=== PATIENT | male | born 1940 | race Caucasian/White ===

== ENCOUNTER 2017-05-18 14:13 | Emergency (ER) | payer MEDICARE ==
[~2017-05-18] VITALS: Ht 182.8 cm; Wt 83.9 kg
[2017-05-18] VITALS (10 sets, daily range): BP systolic 138–175; BP diastolic 67–104
[2017-05-18 14:34] LABS: BASO # 0.1 10*3/uL (0.0-0.1); BASO % 0.5 % (0.0-1.0); EOS # 0.1 10*3/uL (0.0-0.4); EOS % 0.9 % (1.0-4.0); HEMOGLOBIN 13.7 g/dl (14.0-18.0); LYMPH # 1.6 10*3/uL (1.3-4.4); LYMPH % 15.5 % (27.0-41.0); MEAN CELL VOLUME 93.3 fl (80.0-94.0); MEAN CORPUSCULAR HGB 30.4 pg (27.0-31.0); MEAN CORPUSCULAR HGB CONC 32.6 g/dl (33.0-37.0); MEAN PLATELET VOLUME 9.9 fl (9.6-12.3); MONO # 0.6 10*3/uL (0.1-1.0); MONO % 5.7 % (3.0-9.0); NEUT # 8.1 10*3/uL (2.3-7.9); NEUT % 77.1 % (47.0-73.0); PLATELET COUNT AUTOMATED 236 10*3/uL (130-400); RED CELL DISTRI WIDTH 17.9 % (0-14.5); WHITE BLOOD COUNT 10.5 10*3/uL (4.8-10.8)
[2017-05-18] MEDS ORDERED: COREG25 MG PO (14:47)
[2017-05-18] MEDS ORDERED: CENTRUM SILVER1 EAC2 PO (14:48)
[2017-05-18] MEDS ORDERED: CLOPIDOGREL75 MG PO (14:48)
[2017-05-18] MEDS ORDERED: INSPRA25 MG PO (14:48)
[2017-05-18] MEDS ORDERED: LASIX40 MG PO (14:49)
[2017-05-18] MEDS ORDERED: GLUCOTROL XL5 MG PO (14:50)
[2017-05-18] MEDS ORDERED: PREDNISONE5 MG PO (14:50)
[2017-05-18] MEDS ORDERED: MULTIVITAMINS1 EAC5 PO (14:51)
[2017-05-18] MEDS ORDERED: IRON325 M1 PO (14:51)
[2017-05-18] MEDS ORDERED: COZAAR50 M1 PO (14:52)
[2017-05-18] MEDS ORDERED: IMDUR SA60 M1 PO (14:52)
[2017-05-18] MEDS ORDERED: ULTRAM50 MG PO (14:53)
[2017-05-18] MEDS ORDERED: PACERONE100 MG PO (14:53)
[2017-05-18 14:54] LABS: ACT PARTIAL THROMBO TIME 25.1 SECONDS (20.8-31.5)
[2017-05-18] MEDS ORDERED: ZOLPIDEM5 MG PO (14:54)
[2017-05-18 14:57] LABS: ALBUMIN 4.1 gm/dl (3.1-4.5); ALKALINE PHOSPHATASE 39 U/L (45-117); BUN 22 mg/dl (7-24); CHLORIDE 103 mmol/L (98-107); CREATININE 1.33 mg/dL (0.70-1.30); POTASSIUM 4.5 mmol/L (3.5-5.1); SGOT/AST 20 IU/L (3-35); SGPT/ALT 24 U/L (12-78); SODIUM 139 mmol/L (136-145); TOTAL PROTEIN 7.5 gm/dL (6.4-8.2)
[2017-05-18 15:01] LABS: TROPONIN I 0.131 ng/ml (<0.045)
[2017-05-18 20:34] LABS: PHOSPHOROUS 3.3 mg/dL (2.5-4.9)
[2017-05-18 20:37] LABS: TROPONIN I 12.3 ng/ml (<0.045)
[2017-05-18 20:47] LABS: THYROID STIM HORMONE (HS) 1.32 uIU/ml (0.358-4.75)
[2017-05-18 21:11] LABS: VITAMIN D, 25-HYDROXY 24.9 ng/mL (30-100)
== END 2017-05-18 21:00 | disposition short-term general hospital (02) ==
LOC: ED 14:13 → EDHOLD 17:01 → 4E 17:22 → EDHOLD 17:22 → ED 21:00
PROVIDERS: Emergency Medicine; Internal Medicine Hospice and Palliative Medicine
DX: I21.4 Non-ST elevation (NSTEMI) myocardial infarction (principal); R07.89 Other chest pain; Z87.891 Personal history of nicotine dependence; Z98.890 Other specified postprocedural states; Z95.1 Presence of aortocoronary bypass graft; Z90.49 Acquired absence of other specified parts of digestive tract; Z79.899 Other long term (current) drug therapy